=== PATIENT | male | born 1975 | race Two or more races ===

== ENCOUNTER 2019-01-24 09:40 | Outpatient (CLI) | payer OTHER ==
[~2019-01-24 09:40] MED LIST: KETO10TA2 PO; ORPH100T PO
== END 2019-01-26 10:30 | disposition home or self-care (01) ==
LOC: SONOGRAMA 09:40
DX: M67.431 Ganglion, right wrist (principal)

== ENCOUNTER 2020-04-04 12:42 | Emergency (ER) | payer OTHER ==
[~2020-04-04] VITALS: Ht 180.3 cm; Wt 77.1 kg
[2020-04-04] MEDS ORDERED: METOCLOPRAMIDE10 MG PO (16:55)
[2020-04-04] MEDS ORDERED: FLONASE ALLERG9.9 ML NASAL (16:55)
[2020-04-04] MEDS ORDERED: MOTION SICKNESS25 M2 PO (16:55)
== END 2020-04-04 18:17 | disposition home or self-care (01) ==
LOC: ER 12:42
DX: H81.11 Benign paroxysmal vertigo, right ear (principal); H65.91 Unspecified nonsuppurative otitis media, right ear

== ENCOUNTER → 2020-04-09 | Outpatient (CLI) | payer OTHER ==
[~2020-04-09] MED LIST changes: +FLONASE ALLERG9.9 ML NASAL; +METOCLOPRAMIDE10 MG PO; +MOTION SICKNESS25 M2 PO
== END | disposition home or self-care (01) ==
LOC: TOM 09:45
PROVIDERS: ATTEND Otolaryngology
DX: J32.8 Other chronic sinusitis (principal)

== ENCOUNTER → 2024-04-23 | Emergency (ER) | payer OTHER ==
[~2024-04-23] VITALS: Ht 180.3 cm; Wt 81.6 kg
[2024-04-24 00:59] LABS: HEMATOCRIT 43.2 % (39.0-48.0); MEAN CELL VOLUME 88.4 fL (80.0-100.00); MEAN CORPUSCULAR HEMOGLOBIN 30.7 pg (27.00-32.0); MEAN CORPUSCULAR HGB CONC 34.8 g/dl (32.0-36.0); PLATELET COUNT 176 K/uL (150-450); RED BLOOD COUNT 4.88 M/uL (4.00-6.00)
[2024-04-24 01:21] LABS: ALBUMIN 4.2 gm/dL (3.4-5.0); BILIRUBIN TOTAL 0.7 mg/dL (0.3-1.2); CALCIUM 9.3 mg/dL (8.5-10.1); CREATININE SERUM 1.29 mg/dL (0.70-1.30); GFR 59.2; GLOBULINA 3.7 G/DL (2.4-3.5); POTASSIUM 5.07 mEq/L (3.5-5.1); TOTAL PROTEIN 7.9 gm/dL (6.4-8.2)
== END | disposition left against medical advice (07) ==
LOC: ER 20:25
PROVIDERS: Preventive Medicine Public Health & General Preventive Medicine
DX: K59.00 Constipation, unspecified (principal)